=== PATIENT | female | born 1985 | race Caucasian/White ===

== ENCOUNTER 2017-04-07 10:15 | Inpatient (IN) | payer OTHER ==
[2017-04-07] MEDS ORDERED: Nalbuphine 20 MG/1 ML Amp IVPUSH PRN ×2 (11:12→11:34)
[2017-04-07] MEDS ORDERED: Ondansetron 4 MG/2 ML SDV IVPUSH PRN ×2 (11:12→15:25)
[2017-04-07] MEDS ORDERED: Sodium Chloride 0.9% 10 ML Syringe FLUSH PRN (11:12)
[2017-04-07] MEDS ORDERED: Lidocaine 1% 50 ML MDV INJECT ONE (11:12)
[2017-04-07] MEDS ORDERED: Oxytocin/Lactated Ringers 10 UNIT/1,000 ML BAG IV SCH ×2 (11:15)
[2017-04-07] MEDS ORDERED: Misoprostol 25 MCG (1/4 of 100 MCG) Tab VAG ONE (12:11)
--- NOTE | 2017-04-07 12:19 | PCM.LDHP ---
L&D History of Present Illness - General Date of Service: 04/07/17 Admit Problem/Dx: Patient Status Order with Admit Dx/Problem 04/07/17 11:12 Patient Status [ADT] Routine Admission Diagnosis/Problem Admission Diagnosis/Problem complications Source of Information: Patient History Limitations: Reports: No Limitations - History of Present Illness Introduction:: 31 year old female here with elevated blood pressures at 38 3/7 weeks. No headaches. Occasional painful contractions - Related Data Allergies/Adverse Reactions: Allergies Allergy/AdvReac Type Severity Reaction Status Date / Time veena Allergy Airway Uncoded 10/19/14 00:43 Tightness Social & Family History - Tobacco Use Smoking Status *Q: Former Smoker (quit 12 years ago) Years of Tobacco use: 8 Used Tobacco, but Quit: Yes Month Tobacco Last Used: 2002 Second Hand Smoke Exposure: No - Alcohol Use Days Per Week of Alcohol Use: 0 - Recreational Drug Use Recreational Drug Use: No H&P Review of Systems - Review of Systems: Review Of Systems: See Below General: Reports: No Symptoms HEENT: Reports: No Symptoms Pulmonary: Reports: No Symptoms Cardiovascular: Reports: No Symptoms Gastrointestinal: Reports: No Symptoms Genitourinary: Reports: No Symptoms Musculoskeletal: Reports: No Symptoms Skin: Reports: No Symptoms Psychiatric: Reports: No Symptoms Neurological: Reports: No Symptoms Hematologic/Lymphatic: Reports: No Symptoms Immunologic: Reports: No Symptoms L&D Exam - Exam Exam: See Below - Vital Signs Weight: 895.391 kg - OB Specific Contraction Intensity: Moderate Movement: Active Heart Tones: Present Heart Rate (FHR) Variability: Moderate (6-25 bmp) Presentation: Vertex - Adames Score Adames Score Cervix Position: Midposition Adames Score Consistency: Medium Adames Score Effacement: 51-70% Adames Score Dilation: 1-2 cm Adames Score 's Station: -2 Adames Score Total: 6 - Exam General: Alert, Oriented HEENT: PERRLA, Conjunctiva Clear, EACs Clear, EOMI, Hearing Intact, Mucosa Moist & [place], Nares Patent, Normal Nasal Septum, Posterior Pharynx Clear, TMs Clear Neck: Supple, Trachea Midline Lungs: Clear to Auscultation, Normal Respiratory Effort Cardiovascular: Regular Rate, Regular Rhythm GI/Abdominal Exam: Normal Bowel Sounds, Soft, Non-Tender, No Organomegaly, No Distention, No Abnormal Bruit, No Mass, Pelvis Stable Genitourinary: Normal external exam, Normal bimanual exam Back Exam: Normal Inspection, Full Range of Motion Extremities: Normal Inspection, Normal Range of Motion, Non-Tender, No Pedal Edema, Normal Capillary Refill Skin: Warm, Dry, Intact Neurological: Cranial Nerves Intact, Reflexes Equal Bilateral Psychiatric: Alert, Normal Affect, Normal Mood - Patient Data Lab Results Last 24 hrs: Laboratory Results - last 24 hr 04/07/17 04/07/17 Range/Units 10:50 11:45 WBC 11.25 H (3.98-10.04) K/mm3 RBC 4.35 (3.98-5.22) M/mm3 Hgb 12.9 (11.2-15.7) gm/L Hct 38.2 (34.1-44.9) % MCV 87.8 (79.4-94.8) fl MCH 29.7 (25.6-32.2) pg MCHC 33.8 (32.2-35.5) g/dl RDW Std Deviation 42.9 (36.4-46.3) fL Plt Count 296 (182-369) K/mm3 MPV 10.2 (9.4-12.3) fl Neut % (Auto) 75.2 H (34.0-71.1) % Lymph % (Auto) 15.6 L (19.3-51.7) % [place] % (Auto) 7.4 (4.7-12.5) % Eos % (Auto) 0.4 L (0.7-5.8) Baso % (Auto) 0.2 (0.1-1.2) % Neut # (Auto) 8.46 H (1.56-6.13) K/mm3 Lymph # (Auto) 1.75 (1.18-3.74) K/mm3 [place] # (Auto) 0.83 H (0.24-0.36) K/mm3 Eos # (Auto) 0.05 (0.04-0.36) K/mm3 Baso # (Auto) 0.02 (0.01-0.08) K/mm3 Manual Slide Review Abnormal smear Urine Color Yellow (Yellow) Urine Appearance Clear (Clear) Urine pH 6.0 (5.0-8.0) Ur Specific [place] 1.025 (1.005-1.030) Urine Protein Negative (Negative) Urine Glucose (UA) Negative (Negative) Urine Ketones Negative (Negative) Urine Occult Blood Negative (Negative) Urine Nitrite Negative (Negative) Urine Bilirubin Negative (Negative) Urine Urobilinogen 0.2 (0.2-1.0) Ur Leukocyte Esterase Negative (Negative) Result Diagrams: 04/07/17 11:45 Problem List Initiated/Reviewed/Updated: Yes Orders Last 24hrs: Active Orders 24 hr Category Date Time Status Patient Status [ADT] Routine ADT 04/07/17 11:12 Active Activity as Tolerated [RC] PFP Care 04/07/17 11:12 Active Communication Order [RC] ASDIRECTED Care 04/07/17 11:12 Active Heart Tones [RC] ASDIRECTED Care 04/07/17 11:13 Active Notify Provider [RC] PFP Care 04/07/17 11:12 Active Notify Provider [RC] PRN Care 04/07/17 11:12 Active Peripheral IV Care [RC] . DIRECTED Care 04/07/17 11:13 Active Pump Management, Intrathecal [RC] ASDIRECTED Care 04/07/17 11:14 Active Urinary Catheter Assessment [RC] ASDIRECTED Care 04/07/17 11:12 Active Vital Signs [RC] PER UNIT ROUTINE Care 04/07/17 11:12 Active Regular Diet [DIET] Diet 04/07/17 Lunch Active ALANINE AMINOTRANSFERASE,ALT [CHEM] Stat Lab 04/07/17 11:45 Received ASPARTATE AMNIOTRANSFERASE,AST [CHEM] Stat Lab 04/07/17 11:45 Received BLOOD UREA NITROGEN,BUN [CHEM] Stat Lab 04/07/17 11:45 Received CREATININE W/GFR [CHEM] Stat Lab 04/07/17 11:45 Received LACTATE DEHYDROGENASE,LDH [CHEM] Stat Lab 04/07/17 11:45 Received UA W/MICROSCOPIC [URIN] Routine Lab 04/07/17 10:50 Results URIC ACID [CHEM] Stat Lab 04/07/17 11:45 Received Lactated Ringers [Ringers, Lactated] 1,000 ml Med 04/07/17 11:15 Active IV ASDIRECTED Nalbuphine [Nubain] Med 04/07/17 11:12 Active 10 mg IVPUSH Q2H PRN Ondansetron [Zofran] Med 04/07/17 11:12 Active 4 mg IVPUSH Q4H PRN Oxytocin/Lactated Ringers [Pitocin in LR 10 Units/1,000 Med 04/07/17 11:15 Active ML] 10 unit in 1,000 ml IV .CONTINUOUS Oxytocin/Lactated Ringers [Pitocin in LR 10 Units/1,000 Med 04/07/17 11:15 Active ML] 10 unit in 1,000 ml IV TITRATE Sodium Chloride 0.9% [Saline Flush] Med 04/07/17 11:12 Active 10 ml FLUSH ASDIRECTED PRN Electronic Heart Tones Ext w TOCO [WOMSER] Oth 04/07/17 11:12 Ordered Routine Electronic Heart Tones Internal [WOMSER] Per Unit Ot 04/07/17 11:12 Ordered Routine PIH Panel [OM.PC] Stat Ot 04/07/17 11:12 Ordered Peripheral IV Insertion Adult [OM.PC] Routine Ot 04/07/17 11:12 Ordered Resuscitation Status Routine Resus Stat 04/07/17 11:12 Ordered Medication Orders Lactated Ringer's (Ringers, Lactated) 1,000 mls @ 100 mls/hr IV ASDIRECTED GUANAKO Oxytocin/Lactated Ringer's (Pitocin In Lr 10 Units/1,000 Ml) 10 unit in 1,000 mls @ 12 mls/hr IV TITRATE GUANAKO; 2 MUNITS/MIN PRN Reason: Protocol Oxytocin/Lactated Ringer's (Pitocin In Lr 10 Units/1,000 Ml) 10 unit in 1,000 mls @ 500 mls/hr IV .CONTINUOUS GUANAKO PRN Reason: Protocol Nalbuphine HCl (Nubain) 10 mg IVPUSH Q2H PRN PRN Reason: Pain (moderate 4-6) Ondansetron HCl (Zofran) 4 mg IVPUSH Q4H PRN PRN Reason: Nausea/Vomiting Sodium Chloride (Saline Flush) 10 ml FLUSH ASDIRECTED PRN PRN Reason: Keep Vein Open Assessment/Plan Comment:: Term pre-ecclampsia. Labs normal Plan cytotec. Anticipate .
[2017-04-07] MEDS ORDERED: Terbutaline 1 MG/ML SDV ONE (14:22)
[2017-04-07] MEDS ORDERED: Terbutaline 1 MG/ML SDV SUBCUT ONE (14:26)
[2017-04-07] MEDS: Lactated Ringers 1,000 ML IV SCH ×2 (14:30→18:00)
[2017-04-07] MEDS ORDERED: ePHEDrine 50 MG/ML SDV IVPUSH PRN (15:25)
[2017-04-07] MEDS ORDERED: fentaNYL 100 MCG/2 ML SDV EPIDUR PRN (15:25)
[2017-04-07] MEDS ORDERED: diphenhydrAMINE 50 MG/ML SDV IVPUSH PRN (15:25)
--- NOTE | 2017-04-07 15:25 | PCM.PREANE ---
Preanesthetic Assessment - Procedure Proposed Procedure: AMMY - Anesthesia/Transfusion/Family Hx Anesthesia History: Prior Anesthesia Without Reaction Family History of Anesthesia Reaction: No Transfusion History: No Prior Transfusion(s) - Review of Systems General: No Symptoms Pulmonary: No Symptoms Cardiovascular: No Symptoms Gastrointestinal: Other (GERD) Neurological: No Symptoms Other: Reports: None - Physical Assessment NPO Status Date: 04/07/17 NPO Status Time: 15:00 Respiratory Rate: 16 Vital Signs: Last Vital Signs Temp 36.7 C 04/07/17 11:12 Pulse 81 04/07/17 11:12 Resp 16 04/07/17 11:12 BP 143/93 H 04/07/17 11:12 Pulse Ox Height: 1.7 m Weight: 87.997 kg ASA Class: 2 Mental Status: Alert & Oriented x3 Airway Class: Mallampati = 1 Dentition: Reports: Normal Dentition Thyro-Mental Finger Breadths: 3 ROM/Head Extension: Full Lungs: Clear to Auscultation, Normal Respiratory Effort Cardiovascular: Regular Rate, Regular Rhythm - Lab Values: Laboratory Last Values WBC 11.25 K/mm3 (3.98-10.04) H 04/07/17 11:45 RBC 4.35 M/mm3 (3.98-5.22) 04/07/17 11:45 Hgb 12.9 gm/L (11.2-15.7) 04/07/17 11:45 Hct 38.2 % (34.1-44.9) 04/07/17 11:45 MCV 87.8 fl (79.4-94.8) 04/07/17 11:45 MCH 29.7 pg (25.6-32.2) 04/07/17 11:45 MCHC 33.8 g/dl (32.2-35.5) 04/07/17 11:45 RDW Std Deviation 42.9 fL (36.4-46.3) 04/07/17 11:45 Plt Count 296 K/mm3 (182-369) 04/07/17 11:45 MPV 10.2 fl (9.4-12.3) 04/07/17 11:45 Neut % (Auto) 75.2 % (34.0-71.1) H 04/07/17 11:45 Lymph % (Auto) 15.6 % (19.3-51.7) L 04/07/17 11:45 [place] % (Auto) 7.4 % (4.7-12.5) 04/07/17 11:45 Eos % (Auto) 0.4 (0.7-5.8) L 04/07/17 11:45 Baso % (Auto) 0.2 % (0.1-1.2) 04/07/17 11:45 Neut # (Auto) 8.46 K/mm3 (1.56-6.13) H 04/07/17 11:45 Lymph # (Auto) 1.75 K/mm3 (1.18-3.74) 04/07/17 11:45 [place] # (Auto) 0.83 K/mm3 (0.24-0.36) H 04/07/17 11:45 Eos # (Auto) 0.05 K/mm3 (0.04-0.36) 04/07/17 11:45 Baso # (Auto) 0.02 K/mm3 (0.01-0.08) 04/07/17 11:45 Manual Slide Review Abnormal smear 04/07/17 11:45 BUN 9 mg/dL (7-18) 04/07/17 11:45 Creatinine 0.7 mg/dL (0.55-1.02) 04/07/17 11:45 Est Cr Clr Drug Dosing 112.20 mL/min 04/07/17 11:45 Estimated GFR (MDRD) > 60 mL/min (>60) 04/07/17 11:45 Uric Acid 5.7 mg/dL (2.6-6.0) 04/07/17 11:45 AST 21 U/L (15-37) 04/07/17 11:45 ALT 18 U/L (14-59) 04/07/17 11:45 Lactate Dehydrogenase 161 U/L (81-234) 04/07/17 11:45 Urine Color Yellow (Yellow) 04/07/17 10:50 Urine Appearance Clear (Clear) 04/07/17 10:50 Urine pH 6.0 (5.0-8.0) 04/07/17 10:50 Ur Specific [place] 1.025 (1.005-1.030) 04/07/17 10:50 Urine Protein Negative (Negative) 04/07/17 10:50 Urine Glucose (UA) Negative (Negative) 04/07/17 10:50 Urine Ketones Negative (Negative) 04/07/17 10:50 Urine Occult Blood Negative (Negative) 04/07/17 10:50 Urine Nitrite Negative (Negative) 04/07/17 10:50 Urine Bilirubin Negative (Negative) 04/07/17 10:50 Urine Urobilinogen 0.2 (0.2-1.0) 04/07/17 10:50 Ur Leukocyte Esterase Negative (Negative) 04/07/17 10:50 Urine RBC Not seen /hpf (0-5) 04/07/17 10:50 Urine WBC 0-5 /hpf (0-5) 04/07/17 10:50 Ur Epithelial Cells 0-5 /hpf (0-5) 04/07/17 10:50 Urine Bacteria Few /hpf (FEW) 04/07/17 10:50 Urine Mucus Few /hpf (FEW) 04/07/17 10:50 - Allergies Allergies/Adverse Reactions: Allergies Allergy/AdvReac Type Severity Reaction Status Date / Time vines Allergy Airway Uncoded 10/19/14 00:43 Tightness - Blood Blood Available: No Product(s) Available: None - Anesthesia Plan Pre-Op Medication Ordered: None - Acknowledgements Anesthesia Type Planned: Epidural Pt an Appropriate Candidate for the Planned Anesthesia: Yes Alternatives and Risks of Anesthesia Discussed w Pt/Guardian: Yes Pt/Guardian Understands and Agrees with Anesthesia Plan: Yes PreAnesthesia Questionnaire - Past Health History Medical/Surgical History: Denies Medical/Surgical History ACCT EXEC History: Reports: - SUBSTANCE USE Smoking Status *Q: Former Smoker (quit 12 years ago) Tobacco Use Within Last Twelve Months: No Second Hand Smoke Exposure: No Days Per Week of Alcohol Use: 0 Recreational Drug Use History: No - CURRENT (IN HOUSE) MEDS Current Meds: Current Medications Lactated Ringer's (Ringers, Lactated) 1,000 mls @ 100 mls/hr IV ASDIRECTED GUANAKO Last Admin: 04/07/17 14:30 Dose: 100 mls/hr Oxytocin/Lactated Ringer's (Pitocin In Lr 10 Units/1,000 Ml) 10 unit in 1,000 mls @ 12 mls/hr IV TITRATE GUANAKO; 2 MUNITS/MIN PRN Reason: Protocol Oxytocin/Lactated Ringer's (Pitocin In Lr 10 Units/1,000 Ml) 10 unit in 1,000 mls @ 500 mls/hr IV .CONTINUOUS GUANAKO PRN Reason: Protocol Nalbuphine HCl (Nubain) 10 mg IVPUSH Q2H PRN PRN Reason: Pain (moderate 4-6) Ondansetron HCl (Zofran) 4 mg IVPUSH Q4H PRN PRN Reason: Nausea/Vomiting Sodium Chloride (Saline Flush) 10 ml FLUSH ASDIRECTED PRN PRN Reason: Keep Vein Open Discontinued Medications Lidocaine HCl (Xylocaine 1%) 50 ml INJECT ONETIME ONE Stop: 04/07/17 11:13 Misoprostol (Cytotec) 25 mcg VAG ONETIME ONE Stop: 04/07/17 12:12 Last Admin: 04/07/17 12:30 Dose: 25 mcg Nalbuphine HCl (Nubain) 10 mg IVPUSH Q3H PRN PRN Reason: Pain (moderate 4-6) Terbutaline Sulfate (Brethine) Confirm Administered Dose 1 mg .ROUTE .STK-MED ONE Stop: 04/07/17 14:23 Last Admin: 04/07/17 14:34 Dose: Not Given Terbutaline Sulfate (Brethine) 0.25 mg SUBCUT ONETIME ONE Stop: 04/07/17 14:27 Last Admin: 04/07/17 14:35 Dose: 0.25 mg
[2017-04-07] MEDS ORDERED: Bupivacaine/fentaNYL/NS 100 ML Bag EPIDUR SCH (15:30)
[2017-04-07] MEDS ORDERED: Witch Hazel Medicated Pads 100/Jar TOP PRN (19:50)
[2017-04-07] MEDS ORDERED: Lanolin 100% Cream 7 GM Tube TOP PRN (19:50)
[2017-04-07] MEDS ORDERED: Docusate Sodium 100 MG Cap PO PRN (19:50)
[2017-04-07] MEDS: Ibuprofen 600 MG Tab PO PRN (21:42)
[2017-04-07] MEDS ORDERED: Bupivacaine 0.25% 10 ML SDV ONE (22:22)
[2017-04-08] MEDS: Ibuprofen 600 MG Tab PO PRN ×3 (03:11→15:46)
--- NOTE | 2017-04-08 08:32 | PCM48HPAN ---
Post Anesthesia Note - EVALUATION WITHIN 48HRS OF ANESTHETIC Vital Signs in Normal Range: Yes Patient Participated in Evaluation: Yes Respiratory Function Stable: Yes Airway Patent: Yes Cardiovascular Function Stable: Yes Hydration Status Stable: Yes Pain Control Satisfactory: Yes Nausea and Vomiting Control Satisfactory: Yes Mental Status Recovered: Yes
--- NOTE | 2017-04-08 08:34 | PCM.PNPP ---
- General Info Date of Service: 04/08/17 Functional Status: Reports: Pain Controlled - Review of Systems General: Reports: No Symptoms HEENT: Reports: No Symptoms Pulmonary: Reports: No Symptoms Cardiovascular: Reports: No Symptoms Gastrointestinal: Reports: No Symptoms Genitourinary: Reports: No Symptoms Musculoskeletal: Reports: No Symptoms Skin: Reports: No Symptoms Neurological: Reports: No Symptoms Psychiatric: Reports: No Symptoms - General Info Date of Service: 04/08/17 - Patient Data Vital Signs - Most Recent: Last Vital Signs Temp 37.1 C 04/08/17 03:14 Pulse 89 04/08/17 03:14 Resp 14 04/08/17 03:14 BP 131/78 04/08/17 03:14 Pulse Ox 98 04/08/17 03:14 Weight - Most Recent: 87.997 kg I&O - Last 24 Hours: Intake & Output 04/07/17 04/08/17 04/08/17 22:59 06:59 14:59 Intake Total 3120 Balance 3120 Lab Results - Last 24 Hours: Laboratory Results - last 24 hr 04/07/17 04/07/17 04/07/17 Range/Units 10:50 11:45 11:45 WBC 11.25 H (3.98-10.04) K/mm3 RBC 4.35 (3.98-5.22) M/mm3 Hgb 12.9 (11.2-15.7) gm/L Hct 38.2 (34.1-44.9) % MCV 87.8 (79.4-94.8) fl MCH 29.7 (25.6-32.2) pg MCHC 33.8 (32.2-35.5) g/dl RDW Std Deviation 42.9 (36.4-46.3) fL Plt Count 296 (182-369) K/mm3 MPV 10.2 (9.4-12.3) fl Neut % (Auto) 75.2 H (34.0-71.1) % Lymph % (Auto) 15.6 L (19.3-51.7) % [place] % (Auto) 7.4 (4.7-12.5) % Eos % (Auto) 0.4 L (0.7-5.8) Baso % (Auto) 0.2 (0.1-1.2) % Neut # (Auto) 8.46 H (1.56-6.13) K/mm3 Lymph # (Auto) 1.75 (1.18-3.74) K/mm3 [place] # (Auto) 0.83 H (0.24-0.36) K/mm3 Eos # (Auto) 0.05 (0.04-0.36) K/mm3 Baso # (Auto) 0.02 (0.01-0.08) K/mm3 Manual Slide Review Abnormal smear BUN 9 (7-18) mg/dL Creatinine 0.7 (0.55-1.02) mg/dL Est Cr Clr Drug Dosing 112.20 mL/min Estimated GFR (MDRD) > 60 (>60) mL/min Uric Acid 5.7 (2.6-6.0) mg/dL AST 21 (15-37) U/L ALT 18 (14-59) U/L Lactate Dehydrogenase 161 (81-234) U/L Urine Color Yellow (Yellow) Urine Appearance Clear (Clear) Urine pH 6.0 (5.0-8.0) Ur Specific [place] 1.025 (1.005-1.030) Urine Protein Negative (Negative) Urine Glucose (UA) Negative (Negative) Urine Ketones Negative (Negative) Urine Occult Blood Negative (Negative) Urine Nitrite Negative (Negative) Urine Bilirubin Negative (Negative) Urine Urobilinogen 0.2 (0.2-1.0) Ur Leukocyte Esterase Negative (Negative) Urine RBC Not seen (0-5) /hpf Urine WBC 0-5 (0-5) /hpf Ur Epithelial Cells 0-5 (0-5) /hpf Urine Bacteria Few (FEW) /hpf Urine Mucus Few (FEW) /hpf Med Orders - Current: Current Medications Docusate Sodium (Colace) 100 mg PO BID PRN PRN Reason: Constipation Emollient Ointment (Lansinoh Hpa) 0 gm TOP ASDIRECTED PRN PRN Reason: Sore Nipples Ibuprofen (Motrin) 600 mg PO Q6H PRN PRN Reason: Mild pain or fever Last Admin: 04/08/17 03:11 Dose: 600 mg Witch Jinny (Tucks) 1 pad TOP ASDIRECTED PRN PRN Reason: Hemorrhoid pain Discontinued Medications Diphenhydramine HCl (Benadryl) 25 mg IVPUSH Q6H PRN PRN Reason: Pruritis Ephedrine Sulfate (Ephedrine Sulfate) 5 mg IVPUSH ASDIRECTED PRN PRN Reason: Hypotension Fentanyl (Sublimaze) 100 mcg EPIDUR Q3H PRN PRN Reason: Pain Last Admin: 04/07/17 18:13 Dose: 100 mcg Fentanyl/Bupivacaine HCl (Fentanyl/Bupivacaine/Ns 2 Mcg-0.125% 100 Ml) 100 ml EPIDUR ASDIRECTED GUANAKO Last Admin: 04/07/17 18:14 Dose: 100 ml Lactated Ringer's (Ringers, Lactated) 1,000 mls @ 100 mls/hr IV ASDIRECTED GUANAKO Last Admin: 04/07/17 18:00 Dose: 100 mls/hr Oxytocin/Lactated Ringer's (Pitocin In Lr 10 Units/1,000 Ml) 10 unit in 1,000 mls @ 12 mls/hr IV TITRATE GUANAKO; 2 MUNITS/MIN PRN Reason: Protocol Oxytocin/Lactated Ringer's (Pitocin In Lr 10 Units/1,000 Ml) 10 unit in 1,000 mls @ 500 mls/hr IV .CONTINUOUS GUANAKO PRN Reason: Protocol Last Admin: 04/07/17 18:43 Dose: 500 mls/hr Lidocaine HCl (Xylocaine 1%) 50 ml INJECT ONETIME ONE Stop: 04/07/17 11:13 Misoprostol (Cytotec) 25 mcg VAG ONETIME ONE Stop: 04/07/17 12:12 Last Admin: 04/07/17 12:30 Dose: 25 mcg Nalbuphine HCl (Nubain) 10 mg IVPUSH Q2H PRN PRN Reason: Pain (moderate 4-6) Nalbuphine HCl (Nubain) 10 mg IVPUSH Q3H PRN PRN Reason: Pain (moderate 4-6) Ondansetron HCl (Zofran) 4 mg IVPUSH Q4H PRN PRN Reason: Nausea/Vomiting Ondansetron HCl (Zofran) 4 mg IVPUSH ONETIME PRN PRN Reason: Nausea/Vomiting Sodium Chloride (Saline Flush) 10 ml FLUSH ASDIRECTED PRN PRN Reason: Keep Vein Open Terbutaline Sulfate (Brethine) Confirm Administered Dose 1 mg .ROUTE .STK-MED ONE Stop: 04/07/17 14:23 Last Admin: 04/07/17 14:34 Dose: Not Given Terbutaline Sulfate (Brethine) 0.25 mg SUBCUT ONETIME ONE Stop: 04/07/17 14:27 Last Admin: 04/07/17 14:35 Dose: 0.25 mg - Interaction Support Person: - Recovery Exam Fundal Tone: Firm Fundal Level: 3 Fingerbreadths Below Umbilicus Fundal Placement: Midline Lochia Amount: Scant Lochia Color: Rubra/Red Perineum Description: Intact, Minimal Bruising/Swelling Episiotomy/Laceration: None Bladder Status: Nonpalpable Urinary Elimination: Voided - Exam General: Alert, Oriented HEENT: Pupils Equal Neck: Supple Lungs: Clear to Auscultation, Normal Respiratory Effort Cardiovascular: Regular Rate, Regular Rhythm GI/Abdominal Exam: Normal Bowel Sounds, Soft, Non-Tender, No Organomegaly, No Distention, No Abnormal Bruit, No Mass, Pelvis Stable Extremities: Normal Inspection, Normal Range of Motion, Non-Tender, No Pedal Edema, Normal Capillary Refill Skin: Warm, Dry, Intact Neurological: No New Focal Deficit Psy/Mental Status: Alert, Normal Affect, Normal Mood - Problem List Review Problem List Initiated/Reviewed/Updated: Yes - My Orders Last 24 Hours: My Active Orders 04/07/17 11:12 Urinary Catheter Assessment [RC] ASDIRECTED Resuscitation Status Routine 04/07/17 11:14 Pump Management, Intrathecal [RC] ASDIRECTED 04/07/17 19:50 Patient Status [ADT] Routine Activity as Tolerated [RC] PER UNIT ROUTINE Vital Signs [RC] ASDIRECTED Docusate Sodium [Colace] 100 mg PO BID PRN Ibuprofen [Motrin] 600 mg PO Q6H PRN Lanolin [Lansinoh HPA] See Dose Instructions TOP ASDIRECTED PRN Witch Jinny [Tucks] 1 pad TOP ASDIRECTED PRN Assess Lochia [WOMSER] Per Unit Routine Assess Uterine Involution [WOMSER] Per Unit Routine Breast Pump [WOMSER] Per Unit Routine Heat Therapy [OM.PC] PRN Medication Administration Instruction [OM.PC] Routine Perineal Care [OM.PC] Per Unit Routine Sitz Bath [OM.PC] Per Unit Routine 04/08/17 19:50 Heat Therapy [OM.PC] PRN 04/08/17 Breakfast Regular Diet [DIET] - Assessment Assessment:: Status post term induction for pre-ecclampsia Doing well Probable discharge tomorrow. Blood pressures improved. - Plan Plan:: Term pre-ecclampsia. Labs normal Plan cytotec. Anticipate .
--- NOTE | 2017-04-08 08:46 | PCM.DCSUM1 ---
Discharge Summary - Discharge Data Discharge Date: 04/08/17 Discharge Disposition: Home, Self-Care 01 Condition: Good - Patient Instructions Driving: May Drive Today Showering/Bathing: July Shower Notify Provider of: Fever, Increased Pain, Swelling and Redness, Drainage, Nausea and/or Vomiting - Discharge Plan Referrals: Meghan Hernandez MD [Primary Care Provider] - - General Info Date of Service: 04/08/17 Functional Status: Reports: Pain Controlled - Review of Systems General: Reports: No Symptoms HEENT: Reports: No Symptoms Pulmonary: Reports: No Symptoms Cardiovascular: Reports: No Symptoms Gastrointestinal: Reports: No Symptoms Genitourinary: Reports: No Symptoms Musculoskeletal: Reports: No Symptoms Skin: Reports: No Symptoms Neurological: Reports: No Symptoms Psychiatric: Reports: No Symptoms - Patient Data Vitals - Most Recent: Last Vital Signs Temp 37.1 C 04/08/17 03:14 Pulse 89 04/08/17 03:14 Resp 14 04/08/17 03:14 BP 131/78 04/08/17 03:14 Pulse Ox 98 04/08/17 03:14 Weight - Most Recent: 87.997 kg I&O - Last 24 hours: Intake & Output 04/07/17 04/08/17 04/08/17 22:59 06:59 14:59 Intake Total 3120 Balance 3120 Lab Results - Last 24 hrs: Laboratory Results - last 24 hr 04/07/17 04/07/17 04/07/17 Range/Units 10:50 11:45 11:45 WBC 11.25 H (3.98-10.04) K/mm3 RBC 4.35 (3.98-5.22) M/mm3 Hgb 12.9 (11.2-15.7) gm/L Hct 38.2 (34.1-44.9) % MCV 87.8 (79.4-94.8) fl MCH 29.7 (25.6-32.2) pg MCHC 33.8 (32.2-35.5) g/dl RDW Std Deviation 42.9 (36.4-46.3) fL Plt Count 296 (182-369) K/mm3 MPV 10.2 (9.4-12.3) fl Neut % (Auto) 75.2 H (34.0-71.1) % Lymph % (Auto) 15.6 L (19.3-51.7) % [place] % (Auto) 7.4 (4.7-12.5) % Eos % (Auto) 0.4 L (0.7-5.8) Baso % (Auto) 0.2 (0.1-1.2) % Neut # (Auto) 8.46 H (1.56-6.13) K/mm3 Lymph # (Auto) 1.75 (1.18-3.74) K/mm3 [place] # (Auto) 0.83 H (0.24-0.36) K/mm3 Eos # (Auto) 0.05 (0.04-0.36) K/mm3 Baso # (Auto) 0.02 (0.01-0.08) K/mm3 Manual Slide Review Abnormal smear BUN 9 (7-18) mg/dL Creatinine 0.7 (0.55-1.02) mg/dL Est Cr Clr Drug Dosing 112.20 mL/min Estimated GFR (MDRD) > 60 (>60) mL/min Uric Acid 5.7 (2.6-6.0) mg/dL AST 21 (15-37) U/L ALT 18 (14-59) U/L Lactate Dehydrogenase 161 (81-234) U/L Urine Color Yellow (Yellow) Urine Appearance Clear (Clear) Urine pH 6.0 (5.0-8.0) Ur Specific [place] 1.025 (1.005-1.030) Urine Protein Negative (Negative) Urine Glucose (UA) Negative (Negative) Urine Ketones Negative (Negative) Urine Occult Blood Negative (Negative) Urine Nitrite Negative (Negative) Urine Bilirubin Negative (Negative) Urine Urobilinogen 0.2 (0.2-1.0) Ur Leukocyte Esterase Negative (Negative) Urine RBC Not seen (0-5) /hpf Urine WBC 0-5 (0-5) /hpf Ur Epithelial Cells 0-5 (0-5) /hpf Urine Bacteria Few (FEW) /hpf Urine Mucus Few (FEW) /hpf Med Orders - Current: Current Medications Docusate Sodium (Colace) 100 mg PO BID PRN PRN Reason: Constipation Emollient Ointment (Lansinoh Hpa) 0 gm TOP ASDIRECTED PRN PRN Reason: Sore Nipples Ibuprofen (Motrin) 600 mg PO Q6H PRN PRN Reason: Mild pain or fever Last Admin: 04/08/17 03:11 Dose: 600 mg Witch Jinny (Tucks) 1 pad TOP ASDIRECTED PRN PRN Reason: Hemorrhoid pain Discontinued Medications Diphenhydramine HCl (Benadryl) 25 mg IVPUSH Q6H PRN PRN Reason: Pruritis Ephedrine Sulfate (Ephedrine Sulfate) 5 mg IVPUSH ASDIRECTED PRN PRN Reason: Hypotension Fentanyl (Sublimaze) 100 mcg EPIDUR Q3H PRN PRN Reason: Pain Last Admin: 04/07/17 18:13 Dose: 100 mcg Fentanyl/Bupivacaine HCl (Fentanyl/Bupivacaine/Ns 2 Mcg-0.125% 100 Ml) 100 ml EPIDUR ASDIRECTED GUANAKO Last Admin: 04/07/17 18:14 Dose: 100 ml Lactated Ringer's (Ringers, Lactated) 1,000 mls @ 100 mls/hr IV ASDIRECTED GUANAKO Last Admin: 04/07/17 18:00 Dose: 100 mls/hr Oxytocin/Lactated Ringer's (Pitocin In Lr 10 Units/1,000 Ml) 10 unit in 1,000 mls @ 12 mls/hr IV TITRATE GUANAKO; 2 MUNITS/MIN PRN Reason: Protocol Oxytocin/Lactated Ringer's (Pitocin In Lr 10 Units/1,000 Ml) 10 unit in 1,000 mls @ 500 mls/hr IV .CONTINUOUS GUANAKO PRN Reason: Protocol Last Admin: 04/07/17 18:43 Dose: 500 mls/hr Lidocaine HCl (Xylocaine 1%) 50 ml INJECT ONETIME ONE Stop: 04/07/17 11:13 Misoprostol (Cytotec) 25 mcg VAG ONETIME ONE Stop: 04/07/17 12:12 Last Admin: 04/07/17 12:30 Dose: 25 mcg Nalbuphine HCl (Nubain) 10 mg IVPUSH Q2H PRN PRN Reason: Pain (moderate 4-6) Nalbuphine HCl (Nubain) 10 mg IVPUSH Q3H PRN PRN Reason: Pain (moderate 4-6) Ondansetron HCl (Zofran) 4 mg IVPUSH Q4H PRN PRN Reason: Nausea/Vomiting Ondansetron HCl (Zofran) 4 mg IVPUSH ONETIME PRN PRN Reason: Nausea/Vomiting Sodium Chloride (Saline Flush) 10 ml FLUSH ASDIRECTED PRN PRN Reason: Keep Vein Open Terbutaline Sulfate (Brethine) Confirm Administered Dose 1 mg .ROUTE .STK-MED ONE Stop: 04/07/17 14:23 Last Admin: 04/07/17 14:34 Dose: Not Given Terbutaline Sulfate (Brethine) 0.25 mg SUBCUT ONETIME ONE Stop: 04/07/17 14:27 Last Admin: 04/07/17 14:35 Dose: 0.25 mg - Exam General: Reports: Alert, Oriented HEENT: Reports: Pupils Equal, Pupils Reactive, EOMI, Mucous Membr. Moist/[place] Neck: Reports: Supple Lungs: Reports: Clear to Auscultation, Normal Respiratory Effort Cardiovascular: Reports: Regular Rate, Regular Rhythm GI/Abdominal Exam: Normal Bowel Sounds, Soft, Non-Tender, No Organomegaly, No Distention, No Abnormal Bruit, No Mass, Pelvis Stable (Female) Exam: Normal External Exam, Normal Speculum Exam, Normal Bimanual Exam Back Exam: Reports: Normal Inspection, Full Range of Motion Extremities: Normal Inspection, Normal Range of Motion, Non-Tender, No Pedal Edema, Normal Capillary Refill Skin: Reports: Warm, Dry, Intact Wound/Incisions: Reports: Healing Well Neurological: Reports: No New Focal Deficit Psy/Mental Status: Reports: Alert, Normal Affect, Normal Mood *Q Meaningful Use (DIS) - VTE *Q VTE Criteria *Q: - Stroke *Q Stroke Criteria *Q: - AMI *Q AMI Criteria *Q:
[2017-04-08 15:48] VITALS: BP 126/88
== END 2017-04-08 17:45 | disposition home or self-care (01) | DRG 775 ==
LOC: JD.OB 10:15 → OBSVTOIN 18:43 → EDSTATUS 04-18 10:14 → MERGE 04-18 14:23
PROVIDERS: ADMIT Obstetrics & Gynecology; ATTEND Obstetrics & Gynecology
PROC: 10E0XZZ Delivery of Products of Conception, External Approach (ICD-10-PCS; principal; 2017-04-07)
PROC: 3E0P7VZ Introduction of Hormone into Female Reproductive, Via Natural or Artificial Opening (ICD-10-PCS; 2017-04-07)
PROC: 3E033VJ Introduction of Other Hormone into Peripheral Vein, Percutaneous Approach (ICD-10-PCS; 2017-04-07)
PROC: 10907ZC Drainage of Amniotic Fluid, Therapeutic from Products of Conception, Via Natural or Artificial Opening (ICD-10-PCS; 2017-04-07)
PROC: 00HU33Z Insertion of Infusion Device into Spinal Canal, Percutaneous Approach (ICD-10-PCS; 2017-04-07)
PROC: 3E0R3BZ Introduction of Anesthetic Agent into Spinal Canal, Percutaneous Approach (ICD-10-PCS; 2017-04-07)
DX: O14.94 Unspecified pre-eclampsia, complicating childbirth (principal); Z37.0 Single live birth; Z3A.38 38 weeks gestation of pregnancy; Z87.891 Personal history of nicotine dependence; Z88.8 Allergy status to other drugs, medicaments and biological substances
CPT/HCPCS: 36415; 59409; 81001; 82565; 83615; 84450; 84460; 84520; 84550; 85025; A9270-GY; J2590; J3010; J3105; J7120